=== PATIENT | male | born 1965 | race African-American/Black ===

== ENCOUNTER 2018-05-12 04:12 | Inpatient (IN) | payer MEDICAID, OTHER ==
[~2018-05-12] VITALS: Ht 167.6 cm; Wt 85.8 kg
[2018-05-12] MEDS ORDERED: ASPIRIN 81MG TABLET PO ONE (05:00)
[2018-05-12 05:22] LABS: BASOPHILS % 0.9 % (0.0-2.0); HEMATOCRIT. 47.6 % (42.0-52.0); HEMOGLOBIN. 15.9 g/dL (14.0-18.0); LYMPHOCYTES % 42.2 % (20.0-50.0); MEAN CORPUSCULAR HEMOGLOBIN 29.5 pg (28.0-32.0); MEAN CORPUSCULAR VOLUME 88.1 fL (80.0-94.0); MEAN PLATELET VOLUME 9.1 fl (7.4-10.4); MONOCYTES % 9.3 % (2.0-8.0); NEUTROPHILS % 41.6 % (40.0-76.0); PLATELET 182 x1000/uL (130-400); RED CELL DISTRIBUTION WIDTH 13.8 % (11.6-14.6)
[2018-05-12 05:26] LABS: CHLORIDE 106 mEq/L (98-107)
[2018-05-12] MEDS ORDERED: IBUPROFEN 600MG TABLET PO PRN (11:15)
[2018-05-12 11:21] VITALS: BP 110/72
[2018-05-12] MEDS ORDERED: IBUP-2029 MT (14:08)
[2018-05-12 14:45] VITALS: BP 110/89
== END 2018-05-12 15:40 | disposition home or self-care (01) | DRG 203 ==
LOC: EDBEDREQ 05:34 → EDBEDREQTM 05:34 → ER 05:50 → 5WST 05:51 → ENRESERV 07:10
PROVIDERS: ADMIT Internal Medicine; ATTEND Internal Medicine
DX: M94.0 Chondrocostal junction syndrome [Tietze] (principal)
CPT/HCPCS: 36415; 71045; 83880; 84484; 85379; 93005; 93306; 99285